=== PATIENT | female | born 1965 | race Caucasian/White ===

== ENCOUNTER 2017-07-06 08:33 | Outpatient (CLI) | payer BC | END 2017-07-06 19:02 | disposition home or self-care (01) | LOC: SMA 08:33 | PROVIDERS: ATTEND Family Medicine | DX: Z12.31 Encounter for screening mammogram for malignant neoplasm of breast (principal) | CPT/HCPCS: G0202 ==

== ENCOUNTER 2019-09-04 13:35 | Outpatient (CLI) | payer BC | END 2019-09-04 21:21 | disposition home or self-care (01) | LOC: SMA 13:35 | PROVIDERS: ATTEND Family Medicine | DX: Z12.31 Encounter for screening mammogram for malignant neoplasm of breast (principal) | CPT/HCPCS: 77067 ==